=== PATIENT | female | born 1960 | race Caucasian/White ===

== ENCOUNTER 2024-09-10 16:02 | Emergency (ER) | payer BC ==
[2024-09-10] MEDS ORDERED: Lidocaine 1% w/Epinephrine 1:200K 30 ML VIAL ONE (16:47)
== END 2024-09-10 18:01 | disposition home or self-care (01) ==
LOC: CSHERS 16:02
DX: L02.11 Cutaneous abscess of neck (principal)
CPT/HCPCS: 10060